=== PATIENT | female | born 1940 | race Two or more races ===

== ENCOUNTER 2021-06-13 14:15 | Outpatient (CLI) | payer MEDICARE, OTHER | END 2021-06-13 23:59 | disposition home or self-care (01) | LOC: MSC 14:15 | PROVIDERS: ATTEND Internal Medicine | DX: I12.9 Hypertensive chronic kidney disease with stage 1 through stage 4 chronic kidney disease, or unspecified chronic kidney disease (principal); E11.22 Type 2 diabetes mellitus with diabetic chronic kidney disease; N18.31 Chronic kidney disease, stage 3a; Z79.4 Long term (current) use of insulin; Z86.79 Personal history of other diseases of the circulatory system; E78.5 Hyperlipidemia, unspecified; E55.9 Vitamin D deficiency, unspecified; Z96.653 Presence of artificial knee joint, bilateral; R32 Unspecified urinary incontinence; Z86.39 Personal history of other endocrine, nutritional and metabolic disease; Z86.2 Personal history of diseases of the blood and blood-forming organs and certain disorders involving the immune mechanism; Z79.899 Other long term (current) drug therapy ==

== ENCOUNTER 2021-08-29 12:50 | Outpatient (CLI) | payer MEDICARE, OTHER | END 2021-08-29 23:59 | disposition home or self-care (01) | LOC: MSC 12:50 | PROVIDERS: ATTEND Internal Medicine | DX: I12.9 Hypertensive chronic kidney disease with stage 1 through stage 4 chronic kidney disease, or unspecified chronic kidney disease (principal); E11.22 Type 2 diabetes mellitus with diabetic chronic kidney disease; N18.32 Chronic kidney disease, stage 3b; Z79.4 Long term (current) use of insulin; E55.9 Vitamin D deficiency, unspecified; E78.5 Hyperlipidemia, unspecified; Z86.79 Personal history of other diseases of the circulatory system; Z86.39 Personal history of other endocrine, nutritional and metabolic disease; Z86.2 Personal history of diseases of the blood and blood-forming organs and certain disorders involving the immune mechanism; Z96.653 Presence of artificial knee joint, bilateral; Z87.448 Personal history of other diseases of urinary system; Z79.899 Other long term (current) drug therapy ==

== ENCOUNTER 2021-12-05 13:00 | Outpatient (CLI) | payer MEDICARE, OTHER | END 2021-12-05 23:59 | disposition home or self-care (01) | LOC: MSC 13:00 | PROVIDERS: ATTEND Internal Medicine | DX: E11.22 Type 2 diabetes mellitus with diabetic chronic kidney disease (principal); I12.9 Hypertensive chronic kidney disease with stage 1 through stage 4 chronic kidney disease, or unspecified chronic kidney disease; N18.31 Chronic kidney disease, stage 3a; Z79.4 Long term (current) use of insulin; Z79.84 Long term (current) use of oral hypoglycemic drugs; E55.9 Vitamin D deficiency, unspecified; E78.5 Hyperlipidemia, unspecified; D50.9 Iron deficiency anemia, unspecified; Z86.79 Personal history of other diseases of the circulatory system; Z98.62 Peripheral vascular angioplasty status; Z79.899 Other long term (current) drug therapy ==